=== PATIENT | female | born 1940 | race Caucasian/White ===

== ENCOUNTER → 2017-02-02 | Outpatient (CLI) | payer MEDICARE, OTHER ==
--- NOTE | 2017-02-02 23:28 | RADIOLOGY REPORT PS360 ---
CHEST(2 VIEWS-NOT PORTABLE) HISTORY: BRONCHITIS cough and bronchitis. Patient Age: 76 years: Female Ordering Physician: HILARY ONEILL APRN TECHNIQUE: PA and lateral chest COMPARISON : No prior chest film available There is a left and right shoulder radiograph 2013 which partially images chest and utilized FINDINGS No focal pneumonia. Of consolidation. Slight coarsening of markings centrally and towards bases notably mainly reflects chronic changes similar to previous views of the chest. Cannot exclude mild central airway inflammatory changes currently/bronchitis with appearance. . Left chest appears overall fairly stable since 2013 left shoulder study Right chest also appears fairly stable since 2013. Heart is normal in size danny and mediastinal structures unremarkable. IMPRESSION Nothing definitely acute. No focal pneumonia Mild chronic changes bilaterally. . Heart upper normal in size
== END ==
LOC: RAD 11:36
DX: J40 Bronchitis, not specified as acute or chronic (principal)